=== PATIENT | female | born 1990 | race Caucasian/White ===

== ENCOUNTER 2016-09-08 08:46 | Emergency (ER) | payer OTHER ==
[2016-09-08 09:09] VITALS: RESP 18
[2016-09-08 11:28] VITALS: BP 156/105; PULSE 74; TEMP 97; O2SAT 98
== END 2016-09-08 09:47 | disposition home or self-care (01) | DRG 563 ==
LOC: ED 08:46
DX: S83.91XA Sprain of unspecified site of right knee, initial encounter (principal)
CPT/HCPCS: 99282